=== PATIENT | female | born 1980 | race Caucasian/White ===

== ENCOUNTER 2023-04-12 06:49 | Day surgery (SDC) | payer BC ==
[~2023-04-12] VITALS: Ht 162.6 cm; Wt 138.3 kg
[~2023-04-12 06:49] MED LIST: ALL DAY10 MG PO; ARNUITY EL50 MCG/ACT; B121000 MC1 PO; CYCLOBENZAPRINE10 MG PO; HYDROCHLOROT25 MG PO; NAPROXEN500 MG PO; UNITHROID175 MCG PO; UNITHROID200 MCG PO; VIT E & C EX; VITAMIN E400 UNIT PO
[2023-04-12] MEDS ORDERED: LIDOcaine HCl 1% (Local Anesth.) 20 ML VIAL ONE ×2 (07:16→08:34)
[2023-04-12] MEDS ORDERED: FAMOTIDINE 10MG/ML 2ML SDV IV ONE (07:20)
[2023-04-12] MEDS ORDERED: SODIUM CHLORIDE 0.9% 100 ML IV ONE (07:21)
[2023-04-12] MEDS ORDERED: LACTATED RINGER'S 1,000 ML IV ONE (07:21)
[2023-04-12] MEDS ORDERED: ceFAZolin Sodium 2 GM/VIAL SDV ONE (07:21)
[2023-04-12] MEDS ORDERED: TRAMADOL HCL50 MG PO (08:50)
[2023-04-12] MEDS ORDERED: SODIUM CHLORIDE 1,000 ML BTL IR ONE (09:09)
[2023-04-12] MEDS ORDERED: STERILE WATER FOR IRRIGATION 1,000 ML BTL IR ONE (09:09)
[2023-04-12 10:19] VITALS: BP 138/87
[2023-04-12] MEDS ORDERED: ACETAMINOPHEN 1,000 MG/100 ML VIAL IV ONE (12:42)
[2023-04-12] MEDS ORDERED: LIDOCAINE HCL 2% 2ML SDV IV ONE (12:42)
[2023-04-12] MEDS ORDERED: KETOROLAC TROMETHAMINE 30 MG/ML SDV IV ONE (12:42)
[2023-04-12] MEDS ORDERED: GLYCOPYRROLATE 0.2 MG/ML IV ONE (12:42)
[2023-04-12] MEDS ORDERED: KETAMINE HCL 50 MG/ML 10 ML VIAL IV ONE (12:42)
[2023-04-12] MEDS ORDERED: PROPOFOL 200 MG/20 ML VIAL IV ONE (12:42)
[2023-04-12] MEDS ORDERED: MIDAZOLAM HCL 2 MG/2 ML VIAL IV ONE (12:42)
== END 2023-04-12 10:11 | disposition home or self-care (01) | DRG 572 ==
LOC: ORM 06:49
PROVIDERS: ATTEND Surgery
PROC: 0JBM0ZZ Excision of Left Upper Leg Subcutaneous Tissue and Fascia, Open Approach (ICD-10-PCS; principal; 2023-04-12)
DX: D17.24 Benign lipomatous neoplasm of skin and subcutaneous tissue of left leg (principal); D17.23 Benign lipomatous neoplasm of skin and subcutaneous tissue of right leg
CPT/HCPCS: J0131; J0690